=== PATIENT | female | born 1960 | race Caucasian/White ===

== ENCOUNTER → 2018-01-31 | Outpatient (CLI) | payer BC ==
[~2018-01-31] MED LIST: ALPR0.5T7 PO; DOCU100C37 PO; ESTR1TAB24 PO; IBUP-1780 PO; OMEP40CA36 PO; OXYC-471 PO; ZOLP10TA5 PO
--- NOTE | 2018-01-31 08:20 | Diagnostic Imaging Report ---
PROCEDURE: US Gallbladder. TECHNIQUE: Multiple real-time grayscale images were obtained over the right upper quadrant in various projections. INDICATION: Right upper quadrant pain. FINDINGS: The pancreas is unremarkable. The liver is normal in size at 15.2 cm. No discrete liver mass is identified. The gallbladder is difficult to visualize. There does appear to be a large amount of sludge and stones located within the gallbladder. Gallbladder wall is borderline in thickness at 2 mm. Extrahepatic bile duct is mildly dilated at 9 mm. No intrahepatic ductal dilatation is seen. The right kidney is unremarkable. There is no ascites. IMPRESSION: Limited visualization of the gallbladder which appears to be sludge and stone filled. There is moderate extrahepatic biliary ductal dilatation. Nuclear medicine HIDA scan may be useful for further evaluation. Dictated by: Dictated on workstation # [id number]
== END ==
LOC: RAD 07:24
PROVIDERS: ATTEND Surgery
DX: K83.8 Other specified diseases of biliary tract (principal)
CPT/HCPCS: 76705

== ENCOUNTER 2018-03-17 08:51 | Outpatient (CLI) | payer BC ==
[~2018-03-17] VITALS: Ht 157.5 cm; Wt 77.3 kg
[2018-03-17] MEDS ORDERED: OMEP40CA36 PO (09:10)
[2018-03-17] MEDS ORDERED: ALPR0.5T7 PO (09:10)
[2018-03-17] MEDS ORDERED: ESTR1TAB24 PO (09:10)
[2018-03-17] MEDS ORDERED: ZOLP10TA5 PO (09:10)
[2018-03-17 09:33] VITALS: BP 133/82
[2018-03-17 10:16] LABS: BASOPHILS % (AUTO) 1 % (0-10); EOSINOPHILS # (AUTO) 0.1 10^3/uL (0.0-0.3); EOSINOPHILS % (AUTO) 4 % (0-10); HEMATOCRIT 41 % (35-52); LYMPHOCYTES # (AUTO) 1.4 X 10^3 (1.0-4.0); LYMPHOCYTES % (AUTO) 36 % (12-44); MEAN CORPUSCULAR HEMOGLOBIN 32 PG (25-34); MEAN CORPUSCULAR HGB CONC 34 G/DL (32-36); MEAN CORPUSCULAR VOLUME 95 FL (80-99); MEAN PLATELET VOLUME 11.4 FL (7.4-10.4); MONOCYTES # (AUTO) 0.6 X 10^3 (0.0-1.0); MONOCYTES % (AUTO) 15 % (0-12); NEUTROPHILS # (AUTO) 1.7 X 10^3 (1.8-7.8); NEUTROPHILS % (AUTO) 45 % (42-75); PLATELET COUNT 167 10^3/uL (130-400); RED BLOOD COUNT 4.35 10^6/uL (4.35-5.85); RED CELL DISTRIBUTION WIDTH 13.2 % (10.0-14.5); WHITE BLOOD COUNT 3.8 10^3/uL (4.3-11.0)
[2018-03-19] MEDS ORDERED: IBUP-1780 PO (12:36)
[2018-03-19] MEDS ORDERED: OXYC-471 PO (12:36)
[2018-03-19] MEDS ORDERED: DOCU100C37 PO (12:36)
[2018-03-19] MEDS ORDERED: ESTR1TAB24 PO (12:36)
== END 2018-03-17 11:55 | disposition home or self-care (01) ==
LOC: PREOP 08:51
PROVIDERS: ATTEND Surgery
DX: Z01.812 Encounter for preprocedural laboratory examination (principal); Z11.2 Encounter for screening for other bacterial diseases; N92.0 Excessive and frequent menstruation with regular cycle; D64.9 Anemia, unspecified; K82.8 Other specified diseases of gallbladder; K21.9 Gastro-esophageal reflux disease without esophagitis
CPT/HCPCS: 36415; 85025; 86850; 86900; 86901; 87081

== ENCOUNTER → 2018-11-26 | Outpatient (CLI) | payer BC ==
--- NOTE | 2018-11-26 11:14 | Diagnostic Imaging Report ---
INDICATION: Lumbar spine pain. TECHNIQUE: AP and lateral views of the lumbar spine were obtained. FINDINGS: The lumbar lordosis is unremarkable. There is approximately 0.6 cm of anterolisthesis of L4 on L5. There is sclerosis about the L4-5 and L5-S1 facet joints. There is no evidence of fracture. There is no evidence of bone destruction. IMPRESSION: Lower lumbar degenerative facet disease with grade 1 anterolisthesis of L4 on L5. Otherwise, there is no evidence of acute abnormality seen in the lumbar spine. Dictated by: Dictated on workstation # [id number]
--- NOTE | 2018-11-26 11:46 | Diagnostic Imaging Report ---
Clinical indication: Patient with pain for 2 months, deep breathing while belly dancing. Patient's pain over rib cage and radiates to mid spine. Exam: X-ray of the thoracic spine, AP and lateral views. Comparison: None. Findings: The upper thoracic vertebra are partially obscured by overlapping bone and soft tissue. There is a compression fracture deformity of the T7 vertebra of unknown age, which appears greater than 50% compressed. There is no other concern for a fracture or dislocation. There are small spurs involving the thoracic spine. Surgical clips are seen overlying the right upper quadrant which could be related to cholecystectomy changes. Impression: 1: There is a T7 compression fracture deformity of unknown age. If this compression fracture deformity is unknown, then CT scan of the thoracic spine is suggested for better evaluation. 2: Mild thoracic spine degenerative disease. Results of this report were discussed with Barney Hendrix APRN via the telephone on 11/26/2018 at 1130 hrs. Dictated by: Dictated on workstation # [id number]
== END ==
LOC: RAD FS 10:41
PROVIDERS: ATTEND Nurse Practitioner Family
DX: S22.060A Wedge compression fracture of T7-T8 vertebra, initial encounter for closed fracture (principal); M43.16 Spondylolisthesis, lumbar region; M47.816 Spondylosis without myelopathy or radiculopathy, lumbar region; M47.814 Spondylosis without myelopathy or radiculopathy, thoracic region
CPT/HCPCS: 72070; 72100

== ENCOUNTER → 2018-11-28 | Outpatient (CLI) | payer BC ==
--- NOTE | 2018-11-28 17:17 | Diagnostic Imaging Report ---
PROCEDURE: CT thoracic spine without contrast. TECHNIQUE: Multiple axial computerized tomography images were obtained from the base of the thoracic spine to the vertex without intravenous contrast. INDICATION: Mid back pain for two months. History of colon cancer. COMPARISON: Radiographs from 11/26/2018. FINDINGS: There is severe near complete compression deformity of the T7 vertebral body. This causes 5 mm of retropulsion into the spinal canal. There appear to be acute components (image 50, series 6 and image 38, series 6). The fracture involves the anterior and posterior vertebral body. No extension into the posterior elements is seen. The remainder of the thoracic vertebral bodies demonstrate no acute fracture. The remaining vertebral body heights are preserved. There is degenerative change in the lower cervical spine. There is grade 1 anterolisthesis at T10-11. The soft tissues about the cervical spine are unremarkable. There is atelectasis in the lung bases. There are subpleural nodules in the lower lobes bilaterally, measuring 5 mm on the right and on the left (image 79 and 80 of series 3). An additional 3 mm nodule is seen in the right upper lobe (image 47, series 3). There is a 3 mm nodule in the left upper lobe (image 49, series 3). Multiple additional small nodules are seen in the lungs bilaterally (image 63 and 69 of series 3). IMPRESSION: 1. Severe compression deformity of T7 vertebral body, likely acute or subacute. No other fractures are seen. 2. Multiple pulmonary nodules in the lungs bilaterally. Consider dedicated CT of the chest for further evaluation. Dictated by: Dictated on workstation # [id number]
== END ==
LOC: RAD 11:39
PROVIDERS: ATTEND Nurse Practitioner Family
DX: S22.060A Wedge compression fracture of T7-T8 vertebra, initial encounter for closed fracture (principal); R91.8 Other nonspecific abnormal finding of lung field; Z85.038 Personal history of other malignant neoplasm of large intestine
CPT/HCPCS: 72128

== ENCOUNTER → 2018-12-11 | Outpatient (CLI) | payer BC ==
--- NOTE | 2018-12-11 10:02 | Diagnostic Imaging Report ---
PROCEDURE: CT chest without contrast. TECHNIQUE: Multiple contiguous axial images were obtained through the chest without the use of intravenous contrast. INDICATION: Pulmonary nodules. No prior chest CT studies are available for comparison. No axillary lymphadenopathy is detected. Hilar and mediastinal evaluation is limited without intravenous contrast but no significant abnormality is seen. No pericardial or pleural fluid is identified. There are numerous noncalcified micronodules throughout both lungs. The nodules appear to range from 2-7 mm. 7 mm nodule is identified in the posterior medial right lower lobe. There are numerous nodules in the left lower lobe as well as the lingula, right middle lobe and bilateral upper lobes. Upper abdomen does show a 2 cm cyst in the dome of the right lobe of the liver. No other abnormality is seen. IMPRESSION: Numerous subcentimeter noncalcified pulmonary nodules. Metastatic disease cannot be entirely excluded. These would be too small to percutaneously biopsy at this time. Close followup, repeat study in three months could be performed to confirm stability. Dictated by: Dictated on workstation # [id number]
== END ==
LOC: RAD FS 08:38
PROVIDERS: ATTEND Surgery
DX: R91.8 Other nonspecific abnormal finding of lung field (principal)
CPT/HCPCS: 71250

== ENCOUNTER → 2018-12-16 | Outpatient (CLI) | payer BC ==
--- NOTE | 2018-12-16 11:01 | Diagnostic Imaging Report ---
INDICATION: Postmenopausal screening for osteoporosis COMPARISON: None FINDINGS: AP Spine L1-L4: [BMD (g/cm2): 1.301] [T-Score: .8] [Z-Score: 1.8] [BMD Previous: na] [BMD % Change: na] LT Hip Neck: [BMD (g/cm2): 1.035] [T-Score: 0.0] [Z-Score: 1.1] LT Hip Total: [BMD (g/cm2):1.059] [T-Score:0.4] [Z-Score: 1.1] [BMD Previous: na] [BMD % Change: na] RT Hip Neck: [BMD (g/cm2):0.956] [T-Score:-0.6] [Z-Score:0.5] RT Hip Total: [BMD (g/cm2):1.032] [T-score:0.2] [Z-Score:0.9] [BMD Previous:na] [BMD % Change:na] *Indicates significant change from prior examination based on 95% confidence level. World Health Organization criteria for BMD interpretation classify patients as Normal (T-score at or above -1.0), Osteopenic (T-score between -1.0 and -2.5) or Osteoporotic (T-score at or below -2.5). LIMITATIONS AND MODIFICATION: None. FRACTURE RISK (FRAX SCORE): The ten year probability of (%): Major Osteoporotic Fracture: [na] Hip Fracture: [na] IMPRESSION: 1. Normal bone mineral density. 2. Baseline examination. 3. See below National Osteoporosis Foundation guidelines on when to potentially initiate pharmacologic therapy. Based on the National Osteoporosis Foundation Guidelines, pharmacologic treatment should be initiated in any of the following, unless clinical conditions suggest otherwise: * Any patient with prior fragility fracture of the hip or vertebrae. A spine fracture indicates 5X risk for subsequent spine fracture and 2X risk for subsequent hip fracture. * Osteoporosis (T-score <-2.5). * Postmenopausal women and men age 50 and older with low bone mass/osteopenia (T-score between -1.0 and -2.5) by DXA and 10-year major osteoporotic fracture greater than 20% or a 10-year probability of hip fracture greater than 3%. These fracture risks are supplied above in the FRAX score, if applicable. * Clinician judgement and/or patient preferences may indicate treatment for people with 10-year fracture probabilities above or below these levels. Dictated by: Dictated on workstation # [id number]
--- NOTE | 2018-12-16 11:17 | Diagnostic Imaging Report ---
CLINICAL INDICATION: Patient with severe back pain after a fall 3 months ago. Patient states she had a fracture. EXAM: MRI of the thoracic spine was performed without IV contrast. Sequences include sagittal T2, sagittal T1, sagittal STIR, axial T2, and axial T1. COMPARISON: CT scan of the thoracic spine performed without IV contrast dated 11/28/2018. FINDINGS: There is stable appearance and configuration of the burst fracture involving the T7 vertebra. There is associated severe central canal stenosis with compression and deformity of the thoracic spinal cord at the region. There is no definite cord signal abnormality. There is also bilateral facet arthropathy at the T7-T8 level which contributes to severe right T7-T8 neuroforaminal narrowing and moderate to severe left T7-T8 neuroforaminal narrowing. There is mild to moderate right T6-T7 neuroforaminal narrowing. There is a moderate amount of marrow edema involving the T7 vertebra which extends into the posterior elements. There is note of low T1 signal involving the T7 vertebra. There are also small areas of high STIR, low T1 signal seen within the T8, T9, T10, right T11 pedicle, T12, and L2 vertebra. These findings are concerning for metastatic disease. These findings were not as evident on the comparison thoracic spine. A pathologic T7 vertebral body fracture is of concern. There are mildly hypertrophic spurs involving the mid to lower thoracic spine. There is slightly increased kyphosis of the thoracic spine posture centered at the T7 vertebra. There is roughly 2 mm of grade 1 anterolisthesis of T10 on T11. There is associated diffuse disc bulge with mild loss of intervertebral disc height at the T10-T11 level. There is moderate bilateral facet arthropathy/hypertrophy at the T9-T10 and T10-T11 levels which causes moderate to severe left T10-T11 neuroforaminal narrowing and moderate right T9-T10 neuroforaminal narrowing. There is moderate T10-T11 central canal narrowing. The remainder of the thoracic spine shows no significant central canal or neuroforaminal narrowing. There is no significant paraspinal soft tissue abnormality. IMPRESSION: 1. There is a stable appearing T7 vertebral body burst fracture with severe central canal narrowing and deformity of the thoracic spinal cord. There is no definite abnormal thoracic spinal cord signal. A pathologic fracture from neoplasm is of concern and should be excluded. There is high T2 signal within the vertebra. 2. There are multiple patchy areas of high T2, low T1 signal seen from the T8 through the T12 vertebra as well as the L2 vertebra. Metastatic disease is of concern. Correlation with history of neoplasm is suggested. 3. There is grade 1 anterolisthesis of T10 on T11 with diffuse disc bulge and facet arthropathy which causes moderate central canal narrowing. 4. There is multilevel thoracic neuroforaminal narrowing, as described above. Dictated by: Dictated on workstation # [id number]
== END ==
LOC: RAD 09:08
PROVIDERS: ATTEND Physician Assistant
DX: Z13.820 Encounter for screening for osteoporosis (principal); M81.0 Age-related osteoporosis without current pathological fracture; Z78.0 Asymptomatic menopausal state; S22.061A Stable burst fracture of T7-T8 vertebra, initial encounter for closed fracture; M51.34 Other intervertebral disc degeneration, thoracic region; M46.84 Other specified inflammatory spondylopathies, thoracic region; M51.24 Other intervertebral disc displacement, thoracic region; M43.14 Spondylolisthesis, thoracic region; M48.04 Spinal stenosis, thoracic region
CPT/HCPCS: 72146; 77080

== ENCOUNTER → 2018-12-22 | Outpatient (CLI) | payer BC ==
[2018-12-22 14:23] LABS: HEMOGLOBIN 15.1 G/DL (11.5-16.0); MEAN PLATELET VOLUME 10.1 FL (7.4-10.4); RED CELL DISTRIBUTION WIDTH 13.2 % (10.0-14.5); WHITE BLOOD COUNT 9.5 10^3/uL (4.3-11.0)
--- NOTE | 2018-12-22 14:44 | Diagnostic Imaging Report ---
PROCEDURE: CT abdomen and pelvis without contrast. TECHNIQUE: Multiple contiguous axial images were obtained through the abdomen and pelvis without the use of intravenous contrast. Auto Exposure Controls were utilized during the CT exam to meet ALARA standards for radiation dose reduction. INDICATION: Abdominal pain in patient with colon cancer. COMPARISON: Correlation is made with CT scan of the thorax dated 12/11/2018. FINDINGS: Numerous subcentimeter bilateral nodules are seen in the visualized lung bases. Within the abdomen, there is a persistent 2 cm cyst in the anterior aspect of the right hepatic lobe. Gallbladder is surgically absent. There is no evidence of biliary ductal dilatation. Pancreas, adrenal glands and spleen are unremarkable in appearance. There is no free fluid within the abdomen or pelvis. No pathologic adenopathy is seen. There is no evidence of osseous abnormality. The appendix is surgically absent with mildly prominent mesenteric lymph nodes which are most pronounced in the right lower quadrant. These may be reactive in nature. IMPRESSION: No evidence of acute abnormality seen within the abdomen or pelvis. Numerous bilateral pulmonary nodules may reflect metastatic disease without significant change when compared to the CT thorax examination performed on 12/11/2018. Dictated by: Dictated on workstation # [id number]
[2018-12-22 15:38] LABS: POTASSIUM 4.7 MMOL/L (3.6-5.0); SODIUM 137 MMOL/L (135-145)
[2018-12-22 15:39] LABS: ALANINE AMINOTRANSFERASE 32 U/L (0-55); ALBUMIN 4.8 GM/DL (3.2-4.5); ALKALINE PHOSPHATASE 83 U/L (40-136); BILIRUBIN,TOTAL 0.4 MG/DL (0.1-1.0); BUN/CREATININE RATIO 38; CALCIUM 9.8 MG/DL (8.5-10.1); CARBON DIOXIDE 23 MMOL/L (21-32); CHLORIDE 97 MMOL/L (98-107); CREATININE SERUM 0.63 MG/DL (0.60-1.30); GFR ESTIMATED > 60; GLUCOSE 97 MG/DL (70-105); TOTAL PROTEIN 7.9 GM/DL (6.4-8.2)
== END ==
LOC: RAD FS 13:48
PROVIDERS: ATTEND Nurse Practitioner Family
DX: C18.9 Malignant neoplasm of colon, unspecified (principal); R91.8 Other nonspecific abnormal finding of lung field; Z90.49 Acquired absence of other specified parts of digestive tract
CPT/HCPCS: 36415; 74176; 80053; 82378; 85027